=== PATIENT | male | born 1965 | race Hispanic/Latino ===

== ENCOUNTER 2022-05-05 | Day surgery (SDC) | payer BC, SELFPAY ==
[2022-04-17 13:06] VITALS: BMI 35.0
[2022-05-05 06:13] VITALS: BP 160/84; PULSE 77; RESP 16; TEMP 36.4; O2SAT 100; BMI 36.9
[2022-05-05] MEDS: LACTATED RINGERS 1,000 ML 150 ML IV CONT (06:40)
[2022-05-05 06:42] LABS: Glucose Point of Care 140 mg/dl (65-105)
--- NOTE | 2022-05-05 07:26 | WPDANESEPPF ---
Anes - Initial Pre Proc Eval Procedure: Operation Date: 05/05/22 07:30 Proposed Procedures p Screening Colonoscopy - Mau Bradshaw MD Date/Time: 05/05/22 07:26 Surgeon: Mau Bradshaw MD Pre Op Diagnosis: neoplasm screening Patient Data Age: 56 Gender: M Height: 1.73 m Weight: 110.2 kg Last Vital Signs Temp 97.6 F 05/05/22 06:13 Pulse 77 05/05/22 06:13 Resp 16 05/05/22 06:13 BP 160/84 H 05/05/22 06:13 Pulse Ox 100 05/05/22 06:13 O2 Del Method Room Air 05/05/22 06:13 Allergies Allergy/AdvReac Type Severity Reaction Status Date / Time No Known Allergies Allergy Mild Verified 05/05/22 06:25 Home Medications Medication Instructions Recorded Confirmed Type blood sugar diagnostic #10 ea 10/20/19 05/05/22 History lovastatin 40 mg tablet 40 mg PO QPM 10/20/19 05/05/22 History albuterol sulfate 90 mcg/actuation 2 puff inhalation Q4-6H #18 grams 09/12/20 05/05/22 Rx aerosol inhaler pioglitazone 30 mg tablet 30 mg PO DAILY #90 tabs 05/29/21 05/05/22 Rx metformin 1,000 mg tablet 1,000 mg PO BID #90 tabs 02/26/22 05/05/22 Rx semaglutide 0.25 mg or 0.5 mg (2 0.25 mg (0.2 mL) subcut WEEKLY 05/04/22 05/05/22 Rx mg/1.5 mL) subcutaneous pen diabetes #1.5 mL injector (Ozempic) Laboratory Tests 05/05/22 06:40 POC Capillary Glucose 140 mg/dl H mg/dl (65-105) Patient hx anesthesia problems: none Family hx anesthesia problems: none Results Review: All pre-operative results and documents have been reviewed as part of the pre-operative evaluation. [facility] Social History Social History Smoking status: Never smoker Alcohol intake: current Drinks per week: 10 Substance use: current Substance use type: marijuana Other substance usage details: once weekly or less often Living arrangements: with family Spiritual care concerns: No Anes - Eval Final PreProcedure Day of Procedure 05/05/22 07:26 Patient weight: obese Heart: regular rate and rhythm Lungs: clear to auscultation Airway: Mallampati scale class II Neurological: alert and oriented Last oral intake: >/= 8 hours ASA classification: III Emergent: no Anesthetic plan: proceed Anesthesia type and monitoring: general GIVS and standard monitoring Results Review: All pre-operative results and documents have been reviewed as part of the pre-operative evaluation. Informed Consent: The patient's anesthetic plan and its attendant risks and benefits were discussed with the patient/family/POA. Questions were solicited and answers provided to the satisfaction of the patient/family/POA.
--- NOTE | 2022-05-05 07:27 | PM.HPGS ---
History of Present Illness History of Present Illness Consent: Risks, benefits, and alternatives have been discussed and questions answered. Patient agrees to proceed with procedure. Chief complaint: neoplasm screening Narrative: Fuentes Bassett is a 56 year old male here for first screening colonoscopy Review of Systems Constitutional: Constitutional: Denies headache(s) and Denies weakness Eyes: Eyes: Denies blurry vision ENT: Reports Normal hearing present, Denies headache(s) and Denies neck pain Cardiovascular: Cardiovascular: Denies chest pain and Denies dyspnea Respiratory: Respiratory: Denies dyspnea Gastrointestinal: Gastrointestinal: Reports no additional gastrointestinal complaints Genitourinary: Genitourinary: Denies dysuria Musculoskeletal: Musculoskeletal: Denies neck pain Integumentary/Breasts: Skin/Breast: Denies dry skin Neurologic: Reports Normal hearing present, Denies headache(s) and Denies weakness Psychiatric: Psychiatric: Denies anxiety Endocrine: Endocrine: Denies change in body appearance Hematologic/Lymphatic: Hematologic/Lymphatic: Denies easy bleeding Allergic/Immunologic: Allergic/Immunologic: Denies urticaria [facility] Past Medical History Medical History (Updated 05/05/22 @ 07:27 by Mau Bradshaw MD) Colon cancer screening Social History Social History Smoking status: Never smoker Alcohol intake: current Drinks per week: 10 Substance use: current Substance use type: marijuana Other substance usage details: once weekly or less often Living arrangements: with family Spiritual care concerns: No Meds Home Medications and Allergies Home Medications Medication Instructions Recorded Confirmed Type blood sugar diagnostic #10 ea 10/20/19 05/05/22 History lovastatin 40 mg tablet 40 mg PO QPM 10/20/19 05/05/22 History albuterol sulfate 90 mcg/actuation 2 puff inhalation Q4-6H #18 grams 09/12/20 05/05/22 Rx aerosol inhaler pioglitazone 30 mg tablet 30 mg PO DAILY #90 tabs 05/29/21 05/05/22 Rx metformin 1,000 mg tablet 1,000 mg PO BID #90 tabs 02/26/22 05/05/22 Rx semaglutide 0.25 mg or 0.5 mg (2 0.25 mg (0.2 mL) subcut WEEKLY 05/04/22 05/05/22 Rx mg/1.5 mL) subcutaneous pen diabetes #1.5 mL injector (Ozempic) Allergies Allergy/AdvReac Type Severity Reaction Status Date / Time No Known Allergies Allergy Mild Verified 05/05/22 06:25 Vital Signs Vital Signs - 24 hr 05/05/22 06:13 Temperature 97.6 F Pulse Rate 77 Respiratory Rate 16 Blood Pressure 160/84 H Pulse Oximetry 100 Oxygen Delivery Room Air Exam Const: General: comfortable and no acute distress HENMT: General nose exam: Normal nares present Eyes: General: appearance normal, both eyes and all related structures Neck: Neck: no JVD Resp: Auscultation: clear to auscultation bilaterally Cardio: Rate: regular rate Rhythm: regular rhythm GI: Inspection: non-distended GI Palp: Yes Soft to palpation Skin: General skin exam: normal color Neuro: General: gait normal Speech: normal speech Extrem: General: normal to inspection Psych: Mental Status: mental status grossly normal Assessment and Plan Assessment and plan (1) Colon cancer screening: Code(s): Z12.11 - Encounter for screening for malignant neoplasm of colon Status: Acute Assessment and Plan: colonoscopy
[2022-05-05 07:45] VITALS: BP 129/82; PULSE 69; RESP 20; O2SAT 100
[2022-05-05 07:55] VITALS: BP 150/91; PULSE 61; RESP 20; O2SAT 100
[2022-05-05 08:05] VITALS: BP 157/98; PULSE 62; RESP 19; O2SAT 99
== END 2022-05-05 08:12 | disposition home or self-care (01) ==
PROVIDERS: PCP Family Medicine; Visit Provider Internal Medicine Gastroenterology
PROC: 0DJD8ZZ Inspection of Lower Intestinal Tract, Via Natural or Artificial Opening Endoscopic (ICD-10-PCS; CPT 45378; principal; 2022-05-05 07:30)
DX: Z12.11 Encounter for screening for malignant neoplasm of colon (principal); K57.30 Diverticulosis of large intestine without perforation or abscess without bleeding; K64.8 Other hemorrhoids; F12.90 Cannabis use, unspecified, uncomplicated; Z79.84 Long term (current) use of oral hypoglycemic drugs; Z79.51 Long term (current) use of inhaled steroids; E66.9 Obesity, unspecified; Z68.36 Body mass index [BMI] 36.0-36.9, adult
CPT/HCPCS: 45378; 82948; J2704; J7120

== ENCOUNTER → 2023-03-24 12:51 | Outpatient (CLI) | payer BC, SELFPAY ==
--- NOTE | ~2023-03-24 | US_ITS ---
Ultrasound of the upper back CLINICAL HISTORY: Swelling, mass TECHNIQUE: Real-time sonographic imaging performed of the left mid to upper back at the area of clini nila concern. FINDINGS: At the area of clinical concern, there is a 4.5 x 2.5 x 3.9 cm heterogeneous, ovoid mass. T here is a smaller hypoechoic, solid ovoid mass measuring 1.3 x 1.0 x 1.5 cm in this area as well. IMPRESSION: 4.5 x 2.5 x 3.9 cm heterogeneous ovoid mass at the area of clinical concern, with nearby smaller mass measuring 1.3 x 1.0 x 1.5 cm. These lesions are indeterminate. Sonographic appearance is somewhat at ypical for simple lipoma. As such, pre and postcontrast MR recommended to further evaluate. Reviewed, dictated and finalized at location . IMPRESSION: 4.5 x 2.5 x 3.9 cm heterogeneous ovoid mass at the area of clinical concern, wi th nearby smaller mass measuring 1.3 x 1.0 x 1.5 cm. These lesions are indeterm inate. Sonographic appearance is somewhat atypical for simple lipoma. As such, pre and postcontrast MR recommended to further evaluate.
== END ==
PROVIDERS: PCP Surgery; Visit Provider Surgery
DX: R22.2 Localized swelling, mass and lump, trunk (principal)
CPT/HCPCS: 76604

== ENCOUNTER 2023-03-29 08:16 | Outpatient (CLI) | payer BC, SELFPAY ==
[2023-03-29 08:52] LABS: Anion Gap 10 mmol/L (8-16); Blood Urea Nitrogen 14 mg/dL (9-20); Calcium 9.3 mg/dL (8.4-10.2); Carbon Dioxide 27 mmol/L (22-30); Chloride 100 mmol/L (98-107); Estimated Glomerular Filt Rate > 60; Glucose 126 mg/dL (65-110); Potassium 4.1 mmol/L (3.4-5.0); Sodium 137 mmol/L (137-145)
== END 2023-03-29 08:17 | disposition home or self-care (01) ==
LOC: ANHSURGERY 08:19
PROVIDERS: Anesthesiology; PCP Family Medicine; Visit Provider Surgery
DX: E11.9 Type 2 diabetes mellitus without complications (principal); Z01.818 Encounter for other preprocedural examination
CPT/HCPCS: 36415; 80048

== ENCOUNTER 2023-04-08 09:17 | Outpatient (CLI) | payer BC, SELFPAY ==
--- NOTE | ~2023-04-08 | CT_ITS ---
Noncontrast CT scan of the thoracic spine CLINICAL HISTORY: Lipoma TECHNIQUE: Axial noncontrast imaging of the thoracic spine was performed. Sagittal and coronal reform atted images were constructed. Dose reduction technique was used on this scan by utilizing automated exposure control and iterative reconstruction technique. The dose-length product (DLP) was 1421.69 mG y-cm. FINDINGS: There is no fracture or subluxation of the thoracic spine. Vertebral bodies maintain normal height and line. Intervertebral disc spaces are well preserved. No spinal canal stenosis evident. No definite disc bulge evident. There is a partially imaged mass in the subcutaneous soft tissues at the left back measuring at least 3.3 cm in diameter. This is center ed at the T5 level, with appearance most compatible with a cystic lesion. There is a focal satellite cyst or extension of the cyst superiorly. No other soft tissue abnormality evident. Impression: 3.3 cm cystic-appearing mass at the left back at the T5 level. Consider sebaceous cyst, abscess, or o ther cystic lesion. Cystic/necrotic neoplasm not completely excluded. Focal extension or satellite cy st noted at the superior margin of the lesion. Reviewed, dictated and finalized at location . Impression: 3.3 cm cystic-appearing mass at the left back at the T5 level. Consider sebaceo us cyst, abscess, or other cystic lesion. Cystic/necrotic neoplasm not complete ly excluded. Focal extension or satellite cyst noted at the superior margin of the lesion.
== END 2023-04-08 09:18 | disposition home or self-care (01) ==
PROVIDERS: PCP Family Medicine; Visit Provider Surgery
DX: R93.89 Abnormal findings on diagnostic imaging of other specified body structures (principal)
CPT/HCPCS: 72128

== ENCOUNTER 2023-05-06 09:03 | Outpatient (CLI) | payer BC, SELFPAY ==
--- NOTE | ~2023-05-06 | US_ITS ---
EXAMINATION: US biopsy st muscle DATE: 05/06/2023 10:25 INDICATION: Palpable mass at the left upper back TECHNIQUE: The procedure including the risks and benefits was discussed with the patient. Risks discu ssed included bleeding and infection. The patient understood the risks and agreed to proceed. The sk in overlying the lesion of concern position slightly to the left of midline at the posterior thorax w as prepped and draped in usual sterile fashion. A craniocaudal approach was selected with the needle entry site positioned along the cephalad margin of the larger mass overlying the location where it ab uts a smaller mass positioned slightly more cephalad and lateral to the biopsied mass. Anesthetic was administered with 1% lidocaine subcutaneously. An 18 gauge core biopsy needle was then advanced into the mass utilizing continuous sonographic guidance. 4 core biopsy specimens were obtained. The needl e was removed and the entry site was cleaned and dressed. There were no immediate complications. FINDINGS: Ultrasound images demonstrate the biopsy needle advanced into a 3.9 x 1.9 x 4.0 cm heteroge neously hypoechoic potentially complex cystic mass at the region of concern. IMPRESSION: 1. Successful CT-guided biopsy of a 4.0 cm left thoracic paraspinal subcutaneous and potentially comp annie cystic mass. Reviewed, dictated and finalized at location A. IMPRESSION: 1. Successful CT-guided biopsy of a 4.0 cm left thoracic paraspinal subcutaneou s and potentially complex cystic mass.
== END 2023-05-06 09:04 | disposition home or self-care (01) ==
PROVIDERS: PCP Family Medicine; Visit Provider Surgery
DX: R93.7 Abnormal findings on diagnostic imaging of other parts of musculoskeletal system (principal); R93.89 Abnormal findings on diagnostic imaging of other specified body structures; R22.2 Localized swelling, mass and lump, trunk
CPT/HCPCS: 20206; 76942; 88304; 88305

== ENCOUNTER 2023-07-05 14:31 | Outpatient (CLI) | payer BC, SELFPAY ==
[2023-07-05 15:06] LABS: Anion Gap 6 mmol/L (8-16); Blood Urea Nitrogen 15 mg/dL (9-20); Calcium 8.9 mg/dL (8.4-10.2); Carbon Dioxide 29 mmol/L (22-30); Chloride 101 mmol/L (98-107); Estimated Glomerular Filt Rate > 60; Glucose 130 mg/dL (65-110); Sodium 136 mmol/L (137-145)
== END 2023-07-05 14:32 | disposition home or self-care (01) ==
LOC: ANHSURGERY 14:34
PROVIDERS: Anesthesiology; PCP Family Medicine; Visit Provider Surgery
DX: Z01.818 Encounter for other preprocedural examination (principal); E11.9 Type 2 diabetes mellitus without complications
CPT/HCPCS: 36415; 80048

== ENCOUNTER 2023-07-14 02:28 | Day surgery (SDC) | payer BC, SELFPAY ==
[2023-07-02 13:03] VITALS: BMI 34.1
--- NOTE | 2023-07-02 13:08 | PC.NURSE ---
Report to the Outpatient Waiting Room, entrance under the green pavilion located off [facility], at time _0630_ on date _[id number]_. Planned Procedure Time: _0830_. Time changes happen often and if your time is changed the preop area will call you the afternoon before. - You and your visitor will be asked to self-screen and do not enter if you have any COVID symptoms. - A mask is optional within the hospital at this time. Patients may have clear liquids (water, carbonated beverages, clear teas, apple juice) until 3 hours prior to surgery with a maximum of 20 ounces. - No food from midnight until time of surgery Take the following medications with a SIP of water the morning of surgery: __Albuterol inhaler if needed. DO NOT STOP ANY OF YOUR OTHER PRESCRIPTION MEDICATIONS PRIOR TO SURGERY ?EXCEPT THE FOLLOWING Medications to discontinue per physician None Date to take last dose Please no make-up, nail yoruba, hairspray, perfume, deodorant, or body powder the day of surgery. No jewelry (including any body piercings) or valuables the day of surgery, leave them at home. Please take a shower or bath the night before, or the morning of, surgery with an antibacterial soap. Wear comfortable, loose fitting clothing. - Jewelry must be removed prior to entering the operating room. Rings and piercings that are not removed may be cut off. - The hospital will not accept responsibility for valuables. - Please leave all valuables, including medications, at home the day of surgery. If you are going home after surgery, a licensed escort car driver must drive you home. - NO public transportation without another adult if you receive anesthesia. - We recommend that an adult stay with you for 24 hours following discharge. - We also recommend that you do not drive, make important decision, drink alcoholic beverages, or take any drugs that were not prescribed by your health care provider for at least 24 hours after your discharge time. Follow any additional instructions given to you from your surgeon. If you or anyone in your household have experienced Covid symptoms in the past week, please notify your surgeon or the nurse liaison at the phone number below for possible testing. Telephone instructions given to _Patient__and asked if any additional questions and then verbalized understanding. Patient advised to call surgeon office or pre surgery nurse liaison [phone] if any additional questions.
[2023-07-14] VITALS (9 sets, daily range): BP systolic 95–135; BP diastolic 67–85; PULSE 65–68; RESP 12–19; TEMP 36.5–36.6; O2SAT 97–100
[2023-07-14] MEDS: LACTATED RINGERS 1,000 ML 30 ML IV CONT (07:46)
[2023-07-14 07:49] LABS: Glucose Point of Care 119 mg/dl (65-105)
--- NOTE | 2023-07-14 07:51 | WPDANESEPPF ---
Anes - Initial Pre Proc Eval Procedure: Operation Date: 07/14/23 08:30 Proposed Procedures p Excision of Subcutaneous Mass of back - Kumar Luis MD Date/Time: 07/14/23 07:51 Surgeon: Kumar Luis MD Pre Op Diagnosis: Inclusion Cyst of Back / 7by 6 cm Patient Data Age: 58 Gender: M Height: 1.73 m Weight: 101.8 kg Allergies Allergy/AdvReac Type Severity Reaction Status Date / Time No Known Allergies Allergy Mild Verified 07/14/23 07:03 Home Medications Medication Instructions Recorded Confirmed Type blood sugar diagnostic #10 ea 10/20/19 06/14/23 History lovastatin 40 mg tablet 40 mg PO QPM 10/20/19 07/14/23 History metformin 1,000 mg tablet 1,000 mg PO BID #180 tabs 02/10/23 07/14/23 Rx terbinafine HCl 250 mg tablet 250 mg PO DAILY #90 tabs 03/08/23 07/14/23 Rx semaglutide 1 mg/dose (4 mg/3 mL) 1 mg (0.75 mL) subcut WEEKLY #3 mL 04/07/23 07/14/23 Rx subcutaneous pen injector albuterol sulfate 90 mcg/actuation 2 puff inhalation Q4-6H PRN Dyspnea 07/02/23 07/14/23 History aerosol inhaler Laboratory Tests 07/14/23 07:47 POC Capillary Glucose 119 H mg/dl (65-105) Patient hx anesthesia problems: none Family hx anesthesia problems: none Results Review: All pre-operative results and documents have been reviewed as part of the pre-operative evaluation. [facility] Past Medical History Medical History Colon cancer screening Social History Social History Smoking packs per day: 0.5 Smoking cigarettes per day: 10.0 Years smoked: 5 Smoking pack-years: 2.50 Smoking status: Former smoker Tobacco type: cigarettes Smoking end date: 07/02/83 Alcohol intake: current Drinks per week: 3 Substance use: current Substance use type: marijuana Other substance usage details: Infrequent Lack of Transportation: No Lack of Food: Never True Current Housing: I Have Housing Concerned About Future Housing: No Difficulty Paying Gas/Electric Bills: No Difficulty Paying for Meds: No Currently Unemployed: No Education: High School Diploma/GED Difficulty w/ Childcare or Family Care: No Living arrangements: with family Additional living arrangements comments: 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 Gender identity (if verbalized by the patient): Male Sexual Orientation (if Verbalized by the Patient): Straight or Heterosexual Spiritual care concerns: No Agree to blood products: Yes Anes - Eval Final PreProcedure Day of Procedure 07/14/23 07:51 Patient weight: obese Heart: regular rate and rhythm Lungs: clear to auscultation Airway: Mallampati scale class II Neurological: alert and oriented Last oral intake: >/= 8 hours ASA classification: III Emergent: no Anesthetic plan: proceed Anesthesia type and monitoring: general GIVS and standard monitoring Results Review: All pre-operative results and documents have been reviewed as part of the pre-operative evaluation. Informed Consent: The patient's anesthetic plan and its attendant risks and benefits were discussed with the patient/family/POA. Questions were solicited and answers provided to the satisfaction of the patient/family/POA.
--- NOTE | 2023-07-14 08:49 | WPDHPUPDATE1 ---
History and Physical Update Update Date/Time: 07/14/23 08:49 History and Physical has been reviewed, including an updated exam of the patient. There are NO changes in the patient's condition. Risks, benefits, and alternatives have been discussed and questions answered. Patient agrees to proceed with procedure.
[2023-07-14] MEDS: ceFAZolin 2 GM/D5W 50 ML 2 GM/50 ML BAG IVPB (08:58)
[2023-07-14] MEDS: BUPIVACAINE/EPINEPHRINE 0.5% 50 ML VIAL 30 ML INFILTRATE (09:21)
[2023-07-14 11:27] LABS: Glucose Point of Care 175 mg/dl (65-105)
--- NOTE | 2023-07-14 16:01 | W.PM.PROC2 ---
Procedure Note - Detailed Date of Procedure 07/14/23 Pre-op Diagnosis Large skin cyst of the back Post-op Diagnosis Same Procedure Performed Excision 8 cm skin cyst of the back with 1 mm margins, 8.2 cm excision. 22 cm layered closure. Surgeon Kumar Luis MD [employer] Designer Heather Bustillos [employer] Anesthesia General and Local (0.5% Marcaine with epinephrine) Indications Patient is a 58-year-old man who presented with a very firm but smooth large subcutaneous mass on his back. This was evaluated 1st with ultrasound and then with CT scan. Both could not determine whether this was a soft tissue tumor or not. Ultrasound-guided needle core biopsy showed this to be a cyst. Patient is taken to the operating room at this time for excision. Findings The cyst measured 8 x 7 by 3 cm. A large transverse excision was required. Description of Procedure Patient was taken to the operating room and induced into general anesthesia. He was placed in prone laura-knife position. The back was prepped and draped. The proposed elliptical excision was marked in a transverse orientation around the cyst. Local was then infiltrated in the area of the anticipated incision as well as the subcutaneous around the cyst. Incision was made and the large ellipse was incised. Care was taken in the area of the cyst so as not to rupture the cyst or enter the cyst cavity. The 2 ends of the ellipse were elevated and dissected from the subcutaneous and muscle 1st. We then came to the area of the cyst and carefully dissected around it taking 1 mm margins. The cyst was not ruptured during the excision. The cyst was passed off as a specimen. The resulting wound was 22 cm in length. Cautery was used for hemostasis. Additional local was infiltrated for postoperative pain control. I then had to undermine both the cephalad and caudad aspects of the ellipse so that we could close the wound with minimal tension. This worked well but required considerable amount of undermining. The wound was again made hemostatic. We then closed Renetta's fascia with interrupted 3-0 Vicryl suture. The subcutaneous was closed with subcuticular interrupted 4-0 Vicryl suture. The skin was finally closed with a running 4-0 Monocryl skin suture. Wound was dressed with Exofin surgical adhesive. Patient was awakened and taken to recovery in good condition. Sponge needle counts were correct x2. Estimated Blood Loss -20 Drains No Packing No Pathology Yes (Skin cyst of the back) Complications No immediate complications Condition Stable Disposition PACU [facility] Billing Surgery - Charge Forward: Surgery Billing (Excision 8 cm skin cyst of the back with 1 mm margins, 8.2 cm excision. 22 cm layered closure)
== END 2023-07-14 12:10 | disposition home or self-care (01) ==
PROVIDERS: PCP Family Medicine; Visit Provider Surgery
PROC: (CPT 11406; principal; 2023-07-14 08:30)
DX: L72.0 Epidermal cyst (principal); Z79.84 Long term (current) use of oral hypoglycemic drugs; Z79.85 Long-term (current) use of injectable non-insulin antidiabetic drugs; Z79.51 Long term (current) use of inhaled steroids; Z87.891 Personal history of nicotine dependence; F12.90 Cannabis use, unspecified, uncomplicated; E66.9 Obesity, unspecified; Z68.33 Body mass index [BMI] 33.0-33.9, adult
CPT/HCPCS: 11406; 12036; 36415; 80048; 82948; 88304; J0330; J0690; J1100; J2250; J2405; J2704; J3010; J7120

== ENCOUNTER 2023-08-24 13:47 | Emergency (ER) | payer BC, SELFPAY ==
--- NOTE | ~2023-08-24 | XR_ITS ---
XR hand RT min 3V 08/24/2023 15:06 Indication: Right hand pain. Abscess. Procedure: 3 views right hand Comparison: No prior studies for comparison. Findings: There is a nondisplaced tuft fracture fifth distal phalanx. Mild polyarticular osteoarthrit is. No focal soft tissue abnormality. No foreign bodies. Impression: 1: Nondisplaced tuft fracture right fifth distal phalanx. Reviewed, dictated and finalized at location L. [employer] Impression: 1: Nondisplaced tuft fracture right fifth distal phalanx.
--- NOTE | ~2023-08-24 | US_ITS ---
EXAMINATION: US soft tissue UE RT DATE: 08/24/2023 15:59 INDICATION: Abscess at the thenar eminence of the right hand TECHNIQUE: Multiple grayscale and Doppler ultrasound images of the region of concern at the right the jeanna eminence were obtained. COMPARISON: None FINDINGS: There is skin thickening and prominent subcutaneous edema at the thenar eminence. There is a heteroge neous appearance to the underlying thenar muscles with a couple more anechoic appearing small fluid c ollections measuring 1.5 x 0.6 x 0.8 cm along the ulnar/distal side of the muscle and 8 x 6 mm on the radial/proximal margin of the muscle which are concerning for either phlegmonous change or small abs cesses. Per discussion with the post graduate intern this is located closer to the level of the base of the th umb rather than the central palm of the hand. IMPRESSION: 1. Cellulitis at the thenar eminence with a couple small regions of either phlegmonous change or diane y abscess formation along the margins of the thenar musculature near the base of the thumb. Reviewed, dictated and finalized at location A. COATER IMPRESSION: 1. Cellulitis at the thenar eminence with a couple small regions of either phle gmonous change or early abscess formation along the margins of the thenar muscu lature near the base of the thumb.
[2023-08-24 13:53] VITALS: BP 155/71; PULSE 78; RESP 20; TEMP 36.4; O2SAT 100
--- NOTE | 2023-08-24 14:51 | ED.UPPEXIN ---
HPI - Extremity Injury (Upper) General Chief Complaint: Extremity Injury, Upper Stated Complaint: hand injury with cellulitis Time Seen by Provider: 08/24/23 16:00 Source: patient Mode of arrival: ambulatory Limitations: no limitations History of Present Illness HPI narrative: Patient is a 58 y/o male, with PMH of DMII, who presents to the ED with c/o R hand infection. Patient reports he fell on gravel road and landed with his hands outstretched 1 week ago. He sustained an abrasion to his R palm. He states over the last couple days, he has developed increased swelling, warmth, redness, tenderness to his R palm with the redness extending up his forearm. He has had some spontaneous drainage from the wound. Denies any fevers. Seen at an UC today and referred here. He does not check his BG regularly, states his last A1c was 6%. Related Data Home Medications Medication Instructions Recorded Confirmed blood sugar diagnostic #10 ea 10/20/19 08/09/23 lovastatin 40 mg tablet 40 mg PO QPM 10/20/19 08/09/23 albuterol sulfate 90 mcg/actuation 2 puff inhalation Q4-6H PRN Dyspnea 07/02/23 08/09/23 aerosol inhaler Allergies Allergy/AdvReac Type Severity Reaction Status Date / Time No Known Allergies Allergy Mild Verified 08/24/23 13:57 Review of Systems Constitutional: Constitutional: Denies chills and Denies fever(s) Musculoskeletal: Musculoskeletal: Reports arthralgias and Reports joint swelling Integumentary/Breasts: Skin/Breast: Reports erythema Comments: wound/abscess to R palm PMFSH Past Medical History Medical History (Updated 08/24/23 @ 16:45 by Arnold Willams MD) Colon cancer screening DM w/o complication type II Social History Social History Smoking packs per day: 0.5 Smoking cigarettes per day: 10.0 Years smoked: 5 Smoking pack-years: 2.50 Smoking status: Former smoker Tobacco type: cigarettes Smoking end date: 07/02/83 Alcohol intake: current Drinks per week: 3 Substance use: current Substance use type: marijuana Other substance usage details: Infrequent Lack of Transportation: No Lack of Food: Never True Current Housing: I Have Housing Concerned About Future Housing: No Difficulty Paying Gas/Electric Bills: No Difficulty Paying for Meds: No Currently Unemployed: No Education: High School Diploma/GED Difficulty w/ Childcare or Family Care: No Living arrangements: with family Additional living arrangements comments: Occupation/Education: occupation Additional occupation/education comments: [employer] Gender identity (if verbalized by the patient): Male Sexual Orientation (if Verbalized by the Patient): Straight or Heterosexual Spiritual care concerns: No Agree to blood products: Yes Exam Const: General: healthy appearing and no acute distress Nutritional Appearance: obese Orientation/consciousness: patient oriented x3 Limitations: no limitations Resp: Effort & Inspection: normal respiratory effort Auscultation: clear to auscultation bilaterally Cardio: Rate: regular rate Rhythm: regular rhythm Skin: Wounds: wounds noted Other: R palmar surface/thenar eminence with 2x2 cm area of abscess/induration/fluctuance/tenderness. Some spontaneous serous drainage from center of abscessed region. Surrounding erythema/warmth/tenderness extending into proximal wrist, lymphangitis streaking up to proximal ventral forearm. Course Vital Signs Vital signs: Vital Signs Temperature 97.6 F 08/24/23 13:53 Pulse Rate 78 08/24/23 13:53 Respiratory Rate 20 08/24/23 13:53 Blood Pressure 155/71 H 08/24/23 13:53 Pulse Oximetry 100 08/24/23 13:53 Oxygen Delivery Room Air 08/24/23 13:53 Temperature 97.6 F 08/24/23 13:53 Pulse Rate 84 08/24/23 17:33 Respiratory Rate 20 08/24/23 17:33 Blood Pressure 130/74 08/24/23 17:33 Pulse Oximetry 98
[2023-08-24 14:59] LABS: Glucose Point of Care 131 mg/dl (65-105)
[2023-08-24 15:08] LABS: Basophils Percent Auto 0.4 % (0.2-1.2); Eosinophils Absolute Auto 0.1 K/mm3 (0-0.3); Eosinophils Percent Auto 1.3 % (0-4.4); Hematocrit 45.3 % (42.0-52.0); Hemoglobin 15.2 g/dL (14.0-18.0); Immature Granulocyte Absolute 0.02 K/mm3 (0.00-0.031); Immature Granulocyte Percent A 0.2 % (0-0.5); Lymphocytes Percent Auto 17.7 % (18.3-44.2); Mean Corpuscular HGB Conc 33.6 g/dl (32-36); Mean Corpuscular Hemoglobin 31.9 pg (26-34); Mean Platelet Volume 10.7 fl (7.4-10.4); Monocytes Absolute Auto 1.1 K/mm3 (0.1-0.6); Monocytes Percent Auto 13.2 % (2.6-8.5); Neutrophils Absolute Auto 5.7 K/mm3 (1.3-6.7); Neutrophils Percent Auto 67.2 % (45.5-73.1); Platelet Count Result 273 k/mm3 (150-375); Red Blood Count 4.77 M/mm3 (4.6-6.20); Red Cell Distribution Width 12.7 % (11.5-14.5); White Blood Count 8.5 K/mm3 (4.5-10.0)
[2023-08-24 15:15] LABS: Lactic Acid Reflex 1.5 mmol/L (0.7-2.0)
[2023-08-24 15:19] LABS: Alanine Aminotransferase 32 U/L (6-50); Albumin Level 4.3 g/dL (3.5-5.1); Alkaline Phosphatase 84 U/L (38-126); Anion Gap 8 mmol/L (8-16); Aspartate Amino Transferase 44 U/L (17-59); Bilirubin,Total 0.6 mg/dL (0.2-1.3); Blood Urea Nitrogen 13 mg/dL (9-20); CRP 3.1 mg/dL (<1.0); Calcium 8.9 mg/dL (8.4-10.2); Carbon Dioxide 29 mmol/L (22-30); Chloride 102 mmol/L (98-107); Estimated CRCL calculation 101 ml/min; Estimated Glomerular Filt Rate > 60; Glucose 141 mg/dL (65-110); Potassium 4.4 mmol/L (3.4-5.0); Sodium 139 mmol/L (137-145)
[2023-08-24 16:02] LABS: Erythrocyte Sedimentation Rate 33 mm/hr (0-20)
[2023-08-24 16:05] VITALS: BP 132/76; PULSE 72; RESP 18; O2SAT 100
--- NOTE | 2023-08-24 16:39 | ED.GENADULT ---
HPI - General Adult General Chief complaint: Extremity Injury, Upper Stated complaint: hand injury with cellulitis Time Seen by Provider: 08/24/23 16:00 Source: patient Mode of arrival: ambulatory Limitations: no limitations History of Present Illness HPI narrative: 58-year-old male presenting to the emergency department for evaluation of injury and cellulitis to his right hand. Patient reports approximately 2 weeks ago he had a fall landed on gravel and had some redness and erythema of his right thenar eminence. The patient had follow-up and was recommended to present to the ED for IV antibiotics. Patient has been having some drainage from a blister over the thenar eminence. Drainage has been serosanguineous. Patient does have erythema tracking from the palm past the wrist. Related Data Home Medications Medication Instructions Recorded Confirmed blood sugar diagnostic #10 ea 10/20/19 08/09/23 lovastatin 40 mg tablet 40 mg PO QPM 10/20/19 08/09/23 albuterol sulfate 90 mcg/actuation 2 puff inhalation Q4-6H PRN Dyspnea 07/02/23 08/09/23 aerosol inhaler Allergies Allergy/AdvReac Type Severity Reaction Status Date / Time No Known Allergies Allergy Mild Verified 08/24/23 13:57 Review of Systems Review of Systems: All systems reviewed & are unremarkable except as noted in HPI and below PMFSH Past Medical History Medical History (Updated 08/24/23 @ 16:45 by Arnold Willams MD) Colon cancer screening DM w/o complication type II Social History Social History Smoking packs per day: 0.5 Smoking cigarettes per day: 10.0 Years smoked: 5 Smoking pack-years: 2.50 Smoking status: Former smoker Tobacco type: cigarettes Smoking end date: 07/02/83 Alcohol intake: current Drinks per week: 3 Substance use: current Substance use type: marijuana Other substance usage details: Infrequent Lack of Transportation: No Lack of Food: Never True Current Housing: I Have Housing Concerned About Future Housing: No Difficulty Paying Gas/Electric Bills: No Difficulty Paying for Meds: No Currently Unemployed: No Education: High School Diploma/GED Difficulty w/ Childcare or Family Care: No Living arrangements: with family Additional living arrangements comments: Occupation/Education: occupation Additional occupation/education comments: [employer] Gender identity (if verbalized by the patient): Male Sexual Orientation (if Verbalized by the Patient): Straight or Heterosexual Spiritual care concerns: No Agree to blood products: Yes Exam Narrative: APPEARANCE: Well appearing, no pain, no distress, well-nourished. HEAD: normocephalic, atraumatic. EYES: PERRLA/EOMI, conjunctivae clear. NOSE: Normal no drainage EARS:TMS clear with good light reflex. THROAT: Pharynx clear, no exudate. NECK: Supple. No adenopathy, no masses. RESPIRATORY: Airway patent, respirations nonlabored. Clear to auscultation bilaterally, no rales, rhonchi, wheezing. CARDIOVASCULAR: Regular rate and rhythm without murmurs rubs or gallops. ABDOMINAL: Soft, nontender, nondistended, normal bowel sounds MUSCULOSKELETAL: minimal tenderness to right distal 5th finger NEURO: Alert. Cranial nerves II through XII intact. Good gait. Good coordination SKIN: erythema of the right hand. Course Course Emergency Course: 58-year-old male presenting to the duration suspected cellulitis to the right. Patient does have a spontaneously draining wound of the right wrist that is draining serosanguineous fluid. Patient was started on Rocephin in the ED and discharged home with Keflex. X-ray was initially concerning for possible tuft fracture. Patient had no tenderness to palpation and declined the finger splint. Patient was encouraged on close follow-up with Hand surgery. All questions concerns were addressed. Vital Signs Vital signs: Vital Signs T
[2023-08-24 17:33] VITALS: BP 130/74; PULSE 84; RESP 20; O2SAT 98
== END 2023-08-24 17:36 | disposition home or self-care (01) ==
PROVIDERS: Physician Assistant; Emergency Provider Emergency Medicine; PCP Family Medicine
DX: L03.113 Cellulitis of right upper limb (principal); S62.666A Nondisplaced fracture of distal phalanx of right little finger, initial encounter for closed fracture; E11.9 Type 2 diabetes mellitus without complications; W19.XXXA Unspecified fall, initial encounter
CPT/HCPCS: 36415; 73130; 76882; 80053; 82948; 83605; 85025; 85652; 86140; 87070; 87205; 96365; 99284; J0696